=== PATIENT | female | born 1995 | race Caucasian/White ===

== ENCOUNTER → 2020-06-19 16:07 | Outpatient (CLI) | payer OTHER, SELFPAY ==
[2020-06-19] MEDS: COVID-19 VACC, Ad26(JANSSEN)/PF 0.5 ML IM (16:11)
== END ==
PROVIDERS: PCP Student in an Organized Health Care Education/Training Program; Visit Provider Internal Medicine
DX: Z23 Encounter for immunization (principal)
CPT/HCPCS: 0031A; 91303